=== PATIENT | male | born 1995 | race African-American/Black ===

== ENCOUNTER 2019-11-29 16:43 | Emergency (ER) | payer OTHER ==
[~2019-11-29] VITALS: Ht 175.3 cm; Wt 61.2 kg
[2019-11-29 17:12] VITALS: BP_SYST 144
[2019-11-29 17:27] VITALS: BP_SYST 144
== END 2019-11-29 17:28 ==
LOC: SED 16:43
DX: M79.18 Myalgia, other site (principal); Z88.0 Allergy status to penicillin
CPT/HCPCS: 99283